=== PATIENT | male | born 1965 | race Two or more races ===

== ENCOUNTER 2021-03-18 10:03 | Emergency (ER) | payer OTHER ==
[2021-03-18 10:09] VITALS: PULSE 73
[2021-03-18] MEDS ORDERED: ORPHENADRINE 30 MG/ML 2 ML VIAL IM STA (10:40)
[2021-03-18] MEDS ORDERED: KETOROLAC 15 MG/ML 1 ML VIAL IM STA (10:40)
--- NOTE | 2021-03-18 10:43 | ED ---
General Adult HPI - General Chief complaint: Extremity Injury, Lower Stated complaint: back pain Time Seen by Provider: 03/18/21 10:11 Source: patient Mode of arrival: wheelchair Limitations: physical limitation - History of Present Illness Initial comments: 55-year-old male presents to the emergency room for chief complaint of low back pain. Patient reports he has had chronic back pain on and off for years. Patient states he had an exacerbation of his back pain a few days ago. States he was in a guarded smoking and had to go to the bathroom. He was walking to the house and when he went to sit down on the toilet felt the sharp pain in his back. States that since that time it has been more painful. Patient states sometimes it radiates on the right leg and causes a burning sensation. Patient denies any bladder or bowel changes, saddle anesthesia, weakness of the legs, or fevers. Patient states he came to the ER this time because he is supposed to be going on a flight in 4 days and would like medication to help him feel better and get better quicker.Patient has no other complaints at this time including shortness of breath, chest pain, abdominal pain, nausea or vomiting, headache, or visual changes. - Related Data Home Medications Medication Instructions Recorded Confirmed ALPRAZolam [Xanax] 0.5 mg PO BID PRN 03/18/21 03/18/21 DULoxetine HCL [Cymbalta] 60 mg PO DAILY 03/18/21 03/18/21 Magnesium Oxide [Ndiaye] 500 mg PO DAILY 03/18/21 03/18/21 Melatonin 20 mg PO HS 03/18/21 03/18/21 Milk Thistle 1000mg 1 cap PO DAILY 03/18/21 03/18/21 Pantoprazole [Protonix] 40 mg PO DAILY 03/18/21 03/18/21 Tamsulosin [Flomax] 0.4 mg PO DAILY 03/18/21 03/18/21 Thiamine [Vitamin B-1] 100 mg PO DAILY 03/18/21 03/18/21 amLODIPine [Norvasc] 10 mg PO DAILY 03/18/21 03/18/21 Previous Rx's Medication Instructions Recorded Cyclobenzaprine [Flexeril] 10 mg PO TID #20 tab 03/18/21 Lidocaine 5% Patch [Lidoderm 5% 1 patch TOPICAL DAILY PRN 20 Days 03/18/21 Patch] #20 patch predniSONE 50 mg PO DAILY #5 tablet 03/18/21 Allergies Allergy/AdvReac Type Severity Reaction Status Date / Time No Known Allergies Allergy Verified 03/18/21 11:12 Review of Systems ROS Statement: Those systems with pertinent positive or pertinent negative responses have been documented in the HPI. ROS Other: All systems not noted in ROS Statement are negative. Past Medical History Past Medical History: GERD/Reflux, Hypertension Additional Past Medical History / Comment(s): back pain, enlarged prostate History of Any Multi-Drug Resistant Organisms: None Reported Past Surgical History: Cholecystectomy Past Psychological History: Anxiety, Depression Smoking Status: Current every day smoker Past Alcohol Use History: Rare Past Drug Use History: Marijuana General Exam Limitations: physical limitation General appearance: alert, in no apparent distress Head exam: Present: atraumatic Eye exam: Present: normal appearance, PERRL, EOMI. Absent: scleral icterus ENT exam: Present: normal exam, mucous membranes moist Neck exam: Present: normal inspection, full ROM. Absent: tenderness Respiratory exam: Present: normal lung sounds bilaterally. Absent: respiratory distress, wheezes Cardiovascular Exam: Present: regular rate, normal rhythm, normal heart sounds GI/Abdominal exam: Present: soft, normal bowel sounds. Absent: distended, tenderness Extremities exam: Present: normal capillary refill (capillary refill less than 2 seconds bilateral lower extremities, DP pulse 2+ BLE), other (strength 5 out of 5 in bilateral lower extremities) Back exam: Absent: vertebral tenderness Course Vital Signs 03/18/21 03/18/21 10:05 12:04 Temperature 98.2 F 98.0 F Pulse Rate 73 73 Respiratory 18 20 Rate Blood Pressure 152/96 132/87 O2 Sat by Pulse 96 96 Oximetry Medical Decision Making - Medical Decision Making vitals are stable. Patient well-appearing. HPI and physical exam as documented. Pain acute on chronic in nature. Patient was given Toradol and muscle relaxer. Significant improvement in symptoms. Now able to stand up straight and ambulate without flexing at the lumbar spine like before. Patient is aware of red flag signs to return to the emergency room. Otherwise she will follow-up with orthopedics for an MRI. Disposition Clinical Impression: Back pain Disposition: HOME SELF-CARE Condition: Good Instructions (If sedation given, give patient instructions): Acute Low Back Pain (ED) Additional Instructions: follow-up with your doctor in one to 2 days. Follow-up with orthopedics as well for MRI. Return to the emergency room for any worsening symptoms. Prescriptions: Cyclobenzaprine [Flexeril] 10 mg PO TID #20 tab Lidocaine 5% Patch [Lidoderm 5% Patch] 1 patch TOPICAL DAILY PRN 20 Days #20 patch PRN Reason: Pain predniSONE 50 mg PO DAILY #5 tablet Is patient prescribed a controlled substance at d/c from ED?: No Referrals: [facility] [Primary Care Provider] - 1-2 days Ebony Cisneros DO [Doctor of Osteopathic Medicine] - 1-2 days Pranay Beaver DO [Doctor of Osteopathic Medicine] - 1-2 days Time of Disposition: 12:28
[2021-03-18 12:05] VITALS: BP 132/87; RESP 20; TEMP 98
== END 2021-03-18 12:50 | disposition home or self-care (01) ==
LOC: EC 10:03
DX: M54.9 Dorsalgia, unspecified (principal); F17.200 Nicotine dependence, unspecified, uncomplicated; F32.9 Major depressive disorder, single episode, unspecified; F41.9 Anxiety disorder, unspecified; I10 Essential (primary) hypertension; K21.9 Gastro-esophageal reflux disease without esophagitis; F12.90 Cannabis use, unspecified, uncomplicated; Z72.89 Other problems related to lifestyle; Z79.52 Long term (current) use of systemic steroids; Z79.899 Other long term (current) drug therapy
CPT/HCPCS: 99283; 96372 ×2; J2360; J1885